=== PATIENT | male | born 1970 | race Caucasian/White ===

== ENCOUNTER 2019-12-08 15:11 | Observation (INO) | payer OTHER, MEDICAID, SELFPAY ==
[2019-12-08 15:15] VITALS: BP 162/87; PULSE 96; RESP 18; TEMP 36.5; O2SAT 97; BMI 20.2
--- NOTE | 2019-12-08 15:27 | PC.NURSE ---
right hand noted with blister intact, right hand swollen, distal cms intact
--- NOTE | 2019-12-08 15:37 | DI.RAD.S_ITS ---
PROCEDURE: XR HAND RT MIN 3V INDICATIONS: Pain/swelling/foreign body TECHNIQUE: 3 views of the hand(s) acquired. COMPARISON: None. FINDINGS: Bones: No displaced fractures or dislocations. Carpal bones are normally aligned. No suspicious bony lesions. There appears to be slight deformity involving the tuft of the distal phalanx of the thumb, which probably is related to previous injury. Areas of mild degenerative change are noted. Soft tissues: No suspicious soft tissue calcifications. Prominent soft tissue swelling of the hand is more prominent overlying the 5th ray. No unexpected radiopaque foreign bodies are identified. IMPRESSION: 1. Soft tissue swelling about the hand without radiopaque foreign bodies evident. 2. No fractures. Dictated by: Chandra Blanton M.D. on 12/08/2019 at 15:02 Approved by: Chandra Blanton M.D. on 12/08/2019 at 15:10
--- NOTE | 2019-12-08 15:42 | ED_ITS ---
HPI - Skin/Abscess/Foreign Bdy General Chief complaint: Skin/Abscess/Foreign Body Stated complaint: right hand states infected Time Seen by Provider: 12/08/19 15:20 Source: patient Mode of arrival: Ambulatory History of Present Illness HPI narrative: Patient here for complaints of right hand pain and swelling. Ongoing for 5 days. 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 Went to [facility] 2 days ago but left against medical advice when advised to be admitted for cellulitis of the right hand. Denies any IV drug use Related Data Allergies Allergy/AdvReac Type Severity Reaction Status Date / Time No Known Drug Allergies Allergy Verified 12/08/19 15:23 Review of Systems Review of Systems Narrative: GENERAL: Denies chills, fatigue, malaise, fever, sweats. HEENT: Denies sinus pain, ear pain, sore throat, difficulty swallowing, dizziness. RESPIRATORY: Denies dyspnea, cough, wheezing, hemoptysis, sputum. CARDIOVASCULAR: Denies chest pain, palpitations, orthopnea, edema, GASTROINTESTINAL: Denies nausea, vomiting, abdominal pain, diarrhea, constipation, melena. : Denies dysuria, frequency, incontinence, hematuria, urinary retention. MUSCULOSKELETAL: Denies any weakness, has pain and swelling right hand SKIN: Denies rash, skin lesions, or other NEUROLOGIC: Denies weakness, headache, numbness, change in speech, confusion, seizures, incoordination. PSYCHIATRIC: No concerning psychosocial issues. 12 point review of systems is negative except for those stated above ROS Unobtainable: All systems reviewed & are unremarkable except as noted in HPI and below Patient History Social History Smoking Status: Current every day smoker Smoking Status: Current every day smoker tobacco type: cigarettes Substance Use Type: does not use Exam Narrative Exam Narrative: GENERAL: [49] year old patient appears stated age. Well- nourished, well-developed patient, in no distress, not toxic HEAD: Atraumatic. Normocephalic. EYES: Pupils equal round and reactive. Extraocular motions intact. No scleral icterus. No injection or drainage. ENT: Nose without bleeding, purulent drainage. Throat without erythema, tonsillar hypertrophy or exudate. Airway patent. NECK: Trachea midline. Non tender CARDIOVASCULAR: Regular rate and rhythm without murmurs, gallops, or rubs. RESPIRATORY: Clear to auscultation. Breath sounds equal bilaterally. No wheezes, rales, or rhonchi. GASTROINTESTINAL: Abdomen soft, non-tender, nondistended. EXTREMITIES: Examination right hand. No red streaking. Strong radial pulse. 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 No necrotic tissue. Edematous dorsal surface of the right hand. No puncture wounds or track steve seen. Palmar surface overlying the 5th metacarpal joint area tender to touch but no fluctuance. Possible foreign body under the callused skin BACK: Nontender without deformity or crepitance. No flank tenderness. NEURO: AOx3. SKIN: No rash or erythema of visible areas Initial Vital Signs Initial Vital Signs: Vital Signs Temperature 97.7 F 12/08/19 15:15 Pulse Rate 96 H 12/08/19 15:15 Respiratory Rate 18 12/08/19 15:15 Blood Pressure 162/87 H 12/08/19 15:15 Pulse Oximetry 97 12/08/19 15:15 Course Orders Ordered: ED Orders 12/08/19 15:37 XR hand RT min 3V Stat 12/08/19 15:51 Basic Metabolic Panel Stat Complete Blood Count AUTO DIFF Stat Clindamycin Phosphate (Cleocin) 600 mg in 50 mls @ 50 mls/hr IV Q8H ILENE Naloxone HCl (Narcan) 0.2 mg IV Q2MIN PRN PRN Reason: Opiate Reversal Discontinued Medications Clindamycin Phosphate (Cleocin) 600 mg in 50 mls @ 50 mls/hr IV NOW ONE Stop: 12/08/19 16:39 Last Infusion: 12/08/19 17:07 Dose: 0 mls/hr Documented by: Admin: 12/08/19 16:08 Dose: 50 mls/hr Documented by: MICHELLE Ketorolac Tromethamine (Toradol) 30 mg IV NOW ONE Stop: 12/08/19 16:24 Last Admin: 12/08/19 16:48 Dose: 30 mg Documented by: MICHELLE Consultations Consultation #1: Time 5:41 p.m.. Spoke with hospitalist Dr. Salinas... Admit Med surge observation Vital Signs Vital signs: Vital Signs - 8 hr 12/08/19 15:15 12/08/19 17:30 Temperature 97.7 F Pulse Rate 96 H 97 H Respiratory Rate 18 16 Blood Pressure 162/87 H Blood Pressure [Right Arm] 120/64 Pulse Oximetry 97 97 MDM - Skin/Abscess/Foreign Bdy Differential Diagnosis Differential diagnosis: Likely cellulitis Lab Data Result diagrams: 12/08/19 15:51 12/08/19 15:51 Labs: Lab Results 12/08/19 12/08/19 Range/Units 15:51 15:51 WBC 13.9 H (4.5-11.0) X10^3/uL RBC 4.86 (4.5-5.9) X10^6/uL Hgb 13.4 L (13.5-17.5) g/dL Hct 40.9 L (41-53) % MCV 84.1 (80-100) fL MCH 27.6 (26-34) PG MCHC 32.9 (30-36) % RDW 15.2 H (11.6-14.8) % Plt Count 371 (150-400) X10^3/uL Neut % (Auto) 80.9 H (50-75) % Lymph % (Auto) 9.1 L (25-40) % [place] % (Auto) 8.6 (3-14) % Eos % (Auto) 0.8 L (2-4) % Baso % (Auto) 0.6 (0-2) % Neut # (Auto) 23017 H (2857-7436) /uL Lymph # (Auto) 1300 (1585-0287) /uL [place] # (Auto) 1200 H (0-900) /uL Eos # (Auto) 100 (0-450) /uL Baso # (Auto) 100 (0-100) /uL Sodium 136 L (137-145) mmol/L Potassium 4.2 (3.4-5.1) mmol/L Chloride 99 (98-107) mmol/L Carbon Dioxide 29 (22-32) mmol/L BUN 19 (9-20) mg/dL Creatinine 0.71 (0.66-1.25) mg/dL Estimated GFR > 60.0 (>60) mL/min BUN/Creatinine Ratio 26.8 H (6-22) Glucose 79 (70-100) mg/dL Calcium 9.5 (8.4-10.2) mg/dL Imaging Data Right hand x-ray: Radiologist's Impression: [address] [address] XRay Report Signed Patient: Cedrick Gonzáles JMR#: [id number] : 1970Acct:[id number] Age/Sex: 49 / MDate of Service: 12/08/19 Loc: ED Accession Number: [id number] Procedure: XR hand RT min 3V Ordering Provider: Mumtaz Boggs MD PROCEDURE: XR HAND RT MIN 3V INDICATIONS: Pain/swelling/foreign body TECHNIQUE: 3 views of the hand(s) acquired. COMPARISON: None. FINDINGS: Bones: No displaced fractures or dislocations. Carpal bones are normally aligned. No suspicious bony lesions. There appears to be slight deformity involving the tuft of the distal phalanx of the thumb, which probably is related to previous injury. Areas of mild degenerative change are noted. Soft tissues: No suspicious soft tissue calcifications. Prominent soft tissue swelling of the hand is more prominent overlying the 5th ray. No unexpected radiopaque foreign bodies are identified. IMPRESSION: 1. Soft tissue swelling about the hand without radiopaque foreign bodies evident. 2. No fractures. Dictated by: Chandra Blanton M.D. on 12/08/2019 at 15:02 Approved by: Chandra Blanton M.D. on 12/08/2019 at 15:10 Discharge Plan Departure Patient Disposition: Admitted as Observation Clinical Impression: Cellulitis of hand, right Discharge Date/Time: 12/08/19 17:44 Admit Date/Time: 12/08/19 17:43 Admit Provider: Madhu Fuentes
[2019-12-08 16:04] LABS: Add Manual Diff / Slide Review NO; Basophils Absolute Auto 100 /uL (0-100); Basophils Percent Auto 0.6 % (0-2); Eosinophils Absolute Auto 100 /uL (0-450); Eosinophils Percent Auto 0.8 % (2-4); Hematocrit 40.9 % (41-53); Hemoglobin 13.4 g/dL (13.5-17.5); Lymphocytes Absolute Auto 1300 /uL (1100-4500); Lymphocytes Percent Auto 9.1 % (25-40); Mean Corpuscular HGB Conc 32.9 % (30-36); Mean Corpuscular Hemoglobin 27.6 PG (26-34); Mean Corpuscular Volume 84.1 fL (80-100); Monocytes Absolute Auto 1200 /uL (0-900); Monocytes Percent Auto 8.6 % (3-14); Neutrophils Absolute Auto 11200 /uL (1500-7000); Neutrophils Percent Auto 80.9 % (50-75); Platelet Count 371 X10^3/uL (150-400); Red Blood Cell Count 4.86 X10^6/uL (4.5-5.9); Red Cell Distribution Width 15.2 % (11.6-14.8); White Blood Cell Count 13.9 X10^3/uL (4.5-11.0)
[2019-12-08] MEDS: CLINDAMYCIN 600 MG/50 ML PIGGYBACK 50 MG IV ×2 (16:08→19:02)
[2019-12-08 16:13] LABS: BUN Creatinine Ratio 26.8 (6-22); Blood Urea Nitrogen 19 mg/dL (9-20); Calcium 9.5 mg/dL (8.4-10.2); Carbon Dioxide 29 mmol/L (22-32); Chloride 99 mmol/L (98-107); Estimated Glomerular Filt Rate > 60.0 mL/min (>60); Glucose 79 mg/dL (70-100); HEMOLYSIS < 15 (0-50); Potassium 4.2 mmol/L (3.4-5.1); Sodium 136 mmol/L (137-145)
[2019-12-08] MEDS: KETOROLAC 60 MG/2 ML VIAL 30 MG IV (16:48)
[2019-12-08 17:30] VITALS: BP 120/64; PULSE 97; RESP 16; O2SAT 97
--- NOTE | 2019-12-08 17:56 | PM.HP.1 ---
History of Present Illness History of Present Illness Date Patient Seen: 12/08/19 Time Patient Seen: 17:56 Chief complaint: right hand states infected Narrative: This is a 49-year-old male admitting for right hand infection. 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 Two days ago the right hand became painful so he went for an evaluation to the [facility] Emergency Department where an admission treatment program was advised which he declined. He now presents to our emergency department stating that he is willing to be treated and admitted. The hand pain has been worsening, with a focus at the palmar base of the small finger (5th) along with swelling on the dorsum of the hand. The pain and swelling does not radiate past the wrist. He has normal function of the hand and is not aware of any injury to that area. He does, as stated above, work with metal and wood and frequently does have lacerations/punctures/slivers. An x-ray shows no obvious metallic foreign body. In addition he smokes 1 pack a day and drinks a 12 pack of beer every 5 days. He gives a history of an abdominal surgery 6 months ago at [facility] for a bleeding gastric ulcer. Nonsteroidal anti-inflammatories will need to be avoided. Patient History Medical History (Updated 12/08/19 @ 18:13 by Madhu Fuentes MD) Bleeding ulcer with perforation (Acute) Surgical History (Updated 12/08/19 @ 18:13 by Madhu Fuentes MD) H/O abdominal surgery (Acute) H/O wrist surgery (Acute) Family & Social History Family History (Updated 12/08/19 @ 18:16 by Madhu Fuentes MD) Mother Healthy female Social History: All 5 of his children are healthy His backup decision maker is his girlfriend - Gosia Matson. Safety & Behavioral: Feels Safe in Current Yes Environment Been Physically Hurt or No Threatened By a Person Tobacco & Substance use: Smoking Status Current every day smoker Substance Use Type does not use Comment: No drugs. Drinks a 12 pack of beer every 5 days Smokes 1 PPD Meds Home Medications and Allergies Allergies Allergy/AdvReac Type Severity Reaction Status Date / Time No Known Drug Allergies Allergy Verified 12/08/19 15:23 Review of Systems Review of Systems Narrative: Positive for hand pain. Negative for chest pain, shortness of breath, coughing, fevers, chills, sweats, abdominal pain, nausea, vomiting, diarrhea, bleeding, rash, seizures, difficulty talking, difficulty walking. ROS: Yes All systems reviewed with the patient and are negative except as otherwise documented Exam Vital Signs (past 8 hours): - 12/08/19 15:15 12/08/19 17:30 Temperature 97.7 F Pulse Rate 96 H 97 H Respiratory Rate 18 16 Blood Pressure 162/87 H Blood Pressure [Right Arm] 120/64 Pulse Oximetry 97 97 Oxygen Delivery Method Room Air Narrative Exam Narrative: Alert and oriented x3. No apparent distress His hands look like he is a financial examiner. He is a professional aircraft sheet metal mechanic and has grease and other dirt deeply imbedded in all areas of his upper extremity. Pupils are equally round reactive to light and accommodation. Extraocular muscles are intact. Sclerae are pink and nonicteric. There is no thyromegaly JVD is less than 6 cm and no carotid bruits are heard. No lymph nodes are felt head, neck, supraclavicular area. Throat looks normal. Heart is regular rate and rhythm without murmur. Lungs are clear to auscultation bilaterally. Abdomen is soft, bowel sounds positive, nontender, no organomegaly. Extremities have no ankle edema. The back of the right hand is puffy, swollen but not tender or warm. The pad at the base of the right 5th finger has an area of soft, tender, whitish swelling that feels about the size of a large marble. Skin is darkened and grease imbedded not only in his palms but basically everywhere. He is wearing tattered boots and clothing, looking disheveled There is no rash. There is no discoloration on the right hand where the infection is. This is obscured by his imbedded grease. Cranial nerves 2-12 test intact There is no tremor Motor function is 5/5 throughout. Objective Labs Result Diagrams: 12/08/19 15:51 12/08/19 15:51 Labs: Laboratory Results - last 24 hr 12/08/19 12/08/19 15:51 15:51 WBC 13.9 H RBC 4.86 Hgb 13.4 L Hct 40.9 L MCV 84.1 MCH 27.6 MCHC 32.9 RDW 15.2 H Plt Count 371 Neut % (Auto) 80.9 H Lymph % (Auto) 9.1 L [place] % (Auto) 8.6 Eos % (Auto) 0.8 L Baso % (Auto) 0.6 Neut # (Auto) 93144 H Lymph # (Auto) 1300 [place] # (Auto) 1200 H Eos # (Auto) 100 Baso # (Auto) 100 Sodium 136 L Potassium 4.2 Chloride 99 Carbon Dioxide 29 BUN 19 Creatinine 0.71 Estimated GFR > 60.0 BUN/Creatinine Ratio 26.8 H Glucose 79 Calcium 9.5 Assessment & Plan Assessment & Plan narrative: Right Hand Abscess/Cellulitis, present on admission, acute -begin clindamycin IV 600 mg q8 h. -recheck CBC 12/08. Admit white blood count of 13.9. -consult orthopedics for possible incision and drainage. Discussed with Dr. Logan who requests that he be NPO after midnight. He will see him in the morning. This is discussed with the patient. Regular alcohol use, present on admission, chronic -admits to using approximately 2 beers per day -watch for signs of alcohol withdrawal Nicotine addiction, present on admission, chronic -add nicotine patch if needed
[2019-12-08 18:49] VITALS: BP 130/78; PULSE 97; RESP 18; TEMP 37.2; O2SAT 99
[2019-12-08] MEDS: HYDROCODONE/ACET 5/325 TABLET 1 TAB PO (19:02)
[2019-12-08] MEDS: SODIUM CHLORIDE 0.9% 1,000 ML 84 ML IV (19:04)
[2019-12-08 19:12] VITALS: BMI 20.2
--- NOTE | 2019-12-08 22:45 | PC.NURSE ---
Admission note: patient arrived to floor on foot, walked up with personal from ED. Pt reports pain in RT hand 01/15, states he has been tolerating it because he has to but would lilke to have something for pain treatment if available. Pt has limited ROM in right hand due to swelling in joint and fingers. Patient appears to be unkempt and has declined to brush teeth or shower this xiomara. Aware that he is NPO at midnight in preperation for ortho consult tomorrow and poss need for I&D. Patient is resting peacefully in bed at this time. Call light w/ in reach, bed in low pos. no alarm active. pt uses call light w/ needs when nec.
[2019-12-08 23:35] VITALS: BP 106/66; PULSE 89; RESP 16; TEMP 36.4; O2SAT 97
[2019-12-09] VITALS (12 sets, daily range): BP systolic 102–133; BP diastolic 64–87; PULSE 71–93; RESP 9–17; TEMP 36–36.8; O2SAT 95–100; BMI 20.2
[2019-12-09] MEDS: HYDROCODONE/ACET 5/325 TABLET 1 TAB PO (00:31)
[2019-12-09] MEDS: CLINDAMYCIN 600 MG/50 ML PIGGYBACK 50 MG IV ×2 (01:56→08:49)
--- NOTE | 2019-12-09 02:10 | PC.NURSE ---
Addendum entered by Lily Arnold R.N. 12/09/19 04:06: Complains of 6/10 right hand pain making it difficult for him to sleep. TAMI Jeter, informed and order received for now dose of Dilaudid; administered as ordered. Original Note: Patient seen and assessed at 0038. Is alert and oriented. Breath sounds diminished but CTA with RA sat of 97%. HRR. Denies nausea. BT present and abdomen is soft. Has not voided since admission but evening RN reported patient voided in ER. Is able to turn himself in bed. When OOB have requested patient to have SBA for safety at night; verbalizes understanding. Has callous/blister area at base of right 5th finger; area is red and tender to touch. States pain is 5/10 and medicated with Vicodin. States he has chronic tingling in left hand which he believes is due to carpal tunnel. Wearing bilateral SCD's. Fall risk score is low but bed alarm activated for safety. NPO after midnight for possible surgery in a.m.
[2019-12-09] MEDS: HYDROMORPHONE 0.5 MG INJ IV ×3 (04:04→11:51)
[2019-12-09 06:01] LABS: Add Manual Diff / Slide Review NO; Basophils Absolute Auto 100 /uL (0-100); Basophils Percent Auto 0.7 % (0-2); Eosinophils Absolute Auto 200 /uL (0-450); Eosinophils Percent Auto 2.9 % (2-4); Hematocrit 37.2 % (41-53); Hemoglobin 12.3 g/dL (13.5-17.5); Lymphocytes Absolute Auto 1600 /uL (1100-4500); Lymphocytes Percent Auto 19.7 % (25-40); Mean Corpuscular Hemoglobin 27.8 PG (26-34); Mean Corpuscular Volume 84.3 fL (80-100); Monocytes Absolute Auto 1000 /uL (0-900); Monocytes Percent Auto 12.2 % (3-14); Neutrophils Absolute Auto 5200 /uL (1500-7000); Neutrophils Percent Auto 64.5 % (50-75); Platelet Count 332 X10^3/uL (150-400); Red Blood Cell Count 4.41 X10^6/uL (4.5-5.9); Red Cell Distribution Width 14.9 % (11.6-14.8); White Blood Cell Count 8.1 X10^3/uL (4.5-11.0)
--- NOTE | 2019-12-09 08:44 | P.PN_ITS ---
Subjective Subjective Date Patient Seen: 12/09/19 Interval history: Cedrick Gonzáles is a 49-year-old male with a past medical history significant for tobacco dependence and daily alcohol use who presented to the ED for right hand infection. The patient is resting comfortably in bed. He reports that his right hand pain is well controlled with pain medications and currently rates his pain a +2/10 and has been as high as +6/10. His right hand pain is throbbing in quality. He has an area on the palmar aspect of his right hand at the 5th metacarpal which is fluctuant and purulent and likely a small abscess and his erythema and edema on dorsum of 5th metacarpal has improved and continues to be contained within the outline margin. The red streaking up his right forearm has resolved. He is able to actively and passively move his hand without significant pain. He has no other complaints and denies headache, cough, shortness of breath, chest pain, abdominal pain, nausea, vomiting, fever, chills, dysuria, diarrhea or constipation. He endorses hunger and is eager to eat. He is voiding and eliminating without difficulty. He is up ambulating independently in room. Patient is NPO and plan is to take him to the OR for I&D later today. Exam Vital Signs (past 8 hours): - 12/09/19 03:45 12/09/19 08:00 Temperature 96.8 F L 97.5 F L Pulse Rate 85 74 Respiratory Rate 16 16 Blood Pressure 112/64 114/67 Pulse Oximetry 95 97 Oxygen Delivery Method Room Air Oxygen Flow Rate 0 Narrative Exam Narrative: General: Middle-aged gentleman sitting in bed and in no acute distress, poor hygiene with dirt under nails, well-developed, well-nourished, appropriately interactive. HEENT: Normocephalic, atraumatic. External ears without defect. Pupils equal, round, and reactive to light. Anicteric sclerae, moist conjunctivae, and no lid lag. Oropharynx free of erythema and cobble stoning with moist mucosa. Neck: Supple with full range of motion. No lymphadenopathy or thyromegaly. Cardiovascular: Regular rate and rhythm without murmurs, rubs, or gallops appreciated. Pulmonary: Clear to auscultation bilaterally without crackles, wheezes, or rhonchi. Normal respiratory effort with no use of accessory muscles. Abdomen: Soft, bowel sounds present, nontender, nondistended. No he patosplenomegaly or masses appreciated. Extremities: No clubbing, cyanosis, or edema of other extremities. Right hand with erythema and edema surrounding 5th metacarpal on dorsum of hand which is improved and contained within outlined margin. Red streaking up right forearm resolved. Fluctuant and purulence area on plantar aspect of hand at 5th metacarpal medical claims representative of small abscess. Skin: Normal temperature, turgor, and texture; no rash, ulcers, or subcutaneous nodules appreciated. Neurological: Cranial nerves grossly intact. Psychiatric: Mildly anxious mood and normal affect. Alert and oriented to person, place, and time. Objective Labs Result Diagrams: 12/09/19 05:47 12/08/19 15:51 Labs: Laboratory Results - last 24 hr 12/08/19 12/08/19 12/09/19 15:51 15:51 05:47 WBC 13.9 H 8.1 RBC 4.86 4.41 L Hgb 13.4 L 12.3 L Hct 40.9 L 37.2 L MCV 84.1 84.3 MCH 27.6 27.8 MCHC 32.9 33.0 RDW 15.2 H 14.9 H Plt Count 371 332 Neut % (Auto) 80.9 H 64.5 Lymph % (Auto) 9.1 L 19.7 L [place] % (Auto) 8.6 12.2 Eos % (Auto) 0.8 L 2.9 Baso % (Auto) 0.6 0.7 Neut # (Auto) 65596 H 5200 Lymph # (Auto) 1300 1600 [place] # (Auto) 1200 H 1000 H Eos # (Auto) 100 200 Baso # (Auto) 100 100 Sodium 136 L Potassium 4.2 Chloride 99 Carbon Dioxide 29 BUN 19 Creatinine 0.71 Estimated GFR > 60.0 BUN/Creatinine Ratio 26.8 H Glucose 79 Calcium 9.5 Assessment & Plan Assessment & Plan narrative: Cedrick Gonzáles is a 49-year-old male with a past medical history significant for tobacco dependence and daily alcohol use who presented to the ED for right hand infection. 1. Acute right hand cellulitis with abscess, present on admission. Active. -Patient presented with right hand erythema, edema and pain x2 days. Patient previously seen at [facility] and recommended admission which the patient declined. -Received clindamycin 600 mg IV x1 in ED. Continue clindamycin 600 mg IV every 8 hours. -Initial WBC 13.9 and normalize not 8.1. -Continue hydrocodone 5-325 mg every 4 hours as needed for pain while able to take in PO and Dilaudid 0.5 mg every 4 hours as needed for pain while NPO. -Consulted orthopedic surgery, Dr. Logan, who plans to take patient to OR today for I&D and washout. Patient has been NPO since midnight. 2. Alcohol dependence, present on admission. Stable. -Patient endorses drinking at least 2 beers daily. Denies history of alcohol withdrawal, DTs or alcohol withdrawal seizures. -Continue to monitor for signs of alcohol withdrawal. Low threshold to initiate CIWA protocol. 3. Tobacco dependence, present on admission. Stable. -Patient is a current smoker and smokes 0.75 packs per day. -Continue nicotine patch as needed for nicotine withdrawal. -Counseled the patient on smoking and highly encouraged smoking cessation Disposition: Patient likely to discharge home either today or tomorrow after orthopedic surgical intervention with I&D and washout.
[2019-12-09] MEDS: SODIUM CHLORIDE 0.9% 1,000 ML 84 ML IV (08:51)
--- NOTE | 2019-12-09 09:06 | PM.CN ---
History of Present Illness Consult details Date Patient Seen: 12/09/19 Time Patient Seen: 09:00 Chief complaint: right hand states infected Reason for consult: Right hand infection Requesting provider: Madhu Fuentes Narrative: 49-year-old gentleman with a history of right hand pain and swelling for the last few days. Patient works as a diesel truck mechanic. Unsure if he had any penetrating injury to that area of his hand. Was seen at the emergency room at [facility] a few days ago but left before any treatment could be administered. Presented to the emergency room here yesterday with increased redness and swelling. Patient was admitted for IV antibiotics and Orthopedics was consulted. Meds Home Medications and Allergies Allergies Allergy/AdvReac Type Severity Reaction Status Date / Time No Known Drug Allergies Allergy Verified 12/08/19 15:23 Review of Systems Review of Systems ROS: Yes All systems reviewed with the patient and are negative except as otherwise documented Exam Vital Signs (past 8 hours): - 12/09/19 03:45 12/09/19 08:00 Temperature 96.8 F L 97.5 F L Pulse Rate 85 74 Respiratory Rate 16 16 Blood Pressure 112/64 114/67 Pulse Oximetry 95 97 Oxygen Delivery Method Room Air Oxygen Flow Rate 0 Narrative Exam Narrative: Swelling to the dorsal as well as volar aspect of the hand. Small area over the volar aspect of the 5th MCP joint there is a possible fluid collection. Patient is still able to flex and extend the fingers. No pain with axial loading. Generalized swelling to the dorsal aspect of the hand but no sign of any fluid collection. Only the 5th finger seems to be involved. Rest of the fingers are free of any infectious process. Objective Labs Result Diagrams: 12/09/19 05:47 12/08/19 15:51 Labs: Laboratory Results - last 24 hr 12/08/19 12/08/19 12/09/19 15:51 15:51 05:47 WBC 13.9 H 8.1 RBC 4.86 4.41 L Hgb 13.4 L 12.3 L Hct 40.9 L 37.2 L MCV 84.1 84.3 MCH 27.6 27.8 MCHC 32.9 33.0 RDW 15.2 H 14.9 H Plt Count 371 332 Neut % (Auto) 80.9 H 64.5 Lymph % (Auto) 9.1 L 19.7 L [place] % (Auto) 8.6 12.2 Eos % (Auto) 0.8 L 2.9 Baso % (Auto) 0.6 0.7 Neut # (Auto) 59292 H 5200 Lymph # (Auto) 1300 1600 [place] # (Auto) 1200 H 1000 H Eos # (Auto) 100 200 Baso # (Auto) 100 100 Sodium 136 L Potassium 4.2 Chloride 99 Carbon Dioxide 29 BUN 19 Creatinine 0.71 Estimated GFR > 60.0 BUN/Creatinine Ratio 26.8 H Glucose 79 Calcium 9.5 Assessment & Plan Assessment & Plan narrative: Right hand infection mainly involving the 5th finger. Patient has noticed improvement since being on IV antibiotics but still would recommend a I and D of the area with a possible fluid collection. Surgery was discussed with the patient in the risks and limitations associated with. All of his questions concerns were answered to his satisfaction. Time Spent With Patient Time with patient: 15-24 minutes
--- NOTE | 2019-12-09 10:05 | PC.NURSE ---
Day Shift- Pt A&OX4, able to make needs known, NPO. Pain 5-6/10 throbbing to right outer hand and tender to touch. Spoke with Dr. Cueva, to have IV PRN med for pain management as pt is NPO. New order placed by Dr. Cueva and IV PRN Dilaudid given at 0845 with good effect. Pain decreased to 2/10. Pt to OR via wheelchair at 1003, PIV S/L'd.
[2019-12-09] MEDS: LACTATED RINGERS 1,000 ML 42 ML IV (10:21)
[2019-12-09] MEDS: BUPIVACAINE 0.25% W/ EPI 30 ML VIAL INJ (10:53)
[2019-12-09 10:58] LABS: Procalcitonin 0.13 ng/mL (<0.5)
[2019-12-09 10:58] LABS: Procalcitonin 0.06 ng/mL (<0.5)
--- NOTE | 2019-12-09 11:08 | PM.OP.1 ---
Operative Date/Time/Diagnoses Date of procedure: 12/09/19 Time of procedure: 10:30 Pre-op diagnosis: Right hand infection Post-op diagnosis: same Procedure & Clinicians Procedure: Irrigation and debridement of right hand Same procedure as scheduled: Yes Indications: Right hand infection Surgeon: Hank Logan Click Yes if Unassisted: Yes Anesthesia Type: General Operative Notes Findings: Small superficial abscess to the volar aspect of the hand. Closure Type: primary Specimen(s): other (Cultures sent) Estimated Blood Loss (mL): 0 Blood products transfused: none Tourniquet time (min): 14 Procedure in detail: On date of service, patient was met in the holding area where his operative site was signed and witnessed by the OR staff. Surgeries once again discussed with the patient in remaining questions or concerns he had were answered fully. Patient was taken back to the operating theater and placed on the operating table in a supine position. Great care was taken to ensure that all bony prominences were appropriately padded. Well-padded tourniquet was placed up along the upper extremity. A time-out was performed verifying patient's name, procedure, and operative site. An Esmarch was used to exsanguinate the limb the right arm was prepped and draped in the normal sterile fashion. Small Irma type incision was made over the MCP joint of the 5th finger. Fifteen blade was used to incise through skin once we incised through skin there was a small pus that discharged. This was collected for microbiology. This was sent for cultures and sensitivities. The abscess collection was relatively superficial and did not involve the joint nor the flexor tendon. Pickups and tenotomies were used to bluntly dissect down through the fascial tissue to see there was any deeper signs of infectious process. As mentioned previously, no sign of any involvement tendon to bone. The wound was copiously irrigated. No sign of any tracking distally or proximally from our incision. The wound was packed and then closed loosely. The hand was then cleaned, dried, and dressed. Patient was taken to the PACU in stable condition. Complications: none Post-operative Condition: stable Disposition: PACU Plan for aftercare: Patient can be discharged home today. Patient will follow up in clinic for wound check later this week.
--- NOTE | 2019-12-09 12:51 | CM.DANOTE ---
Discharge Planning/Care Management DCP: assessment: case received, EMR reviewed. Discussed in Team Rounds. Met now with pt just after he returned from PACU. Introduced self and role. Pt is a 49 year old male who admitted yesterday to care of hospitalist team. Salon Coordinator: Dr. Doyle who took pt to surgery today for an I&D of wound on his hand. (R). Payer: [employer] [place]/Medicaid. Admission status: OBS: confirmed by [facility] BRAVO Gaspar. DCP assessment Template completed with info given by pt: see below. There has been some confusion today re a d/c order. After coordination with Dr. Fuentes, Dr. Cueva and Dr. Logan it has been determined that pt will be able to d/c home later today and pt says he is very eager to leave. Gosia will be picking him up and will be available to assist him at home as he recovers. Pt confirms he has no PCP and no idea of his insurance. A copy of his face sheet with insurance information is now provided for him but thus far their are no notes in COL from [facility] verifying that this is current. Dr. Logan plans to see pt later this week in his clinic. CM Discharge Assessment Start: 12/09/19 12:49 Freq: Status: Active Protocol: Document 12/09/19 12:49 ITV (Rec: 12/09/19 12:50 ITV [id number]) Discharge Planning Assessment Advance Directives? No History Provided By Patient,Medical Record Prior Living Arrangements RV Comment [facility] address is his mailing address only Household Members significant other Comment girlfriend: Gosia Huyen: [phone] Review Status In Process
--- NOTE | 2019-12-09 13:31 | PC.NURSE ---
Addendum entered by Rossana Flores R.N. 12/09/19 13:37: IVF not started as pt was eating and drinking well post op and plan for discharge today. No urge to void at this time. Original Note: Day Shift- Pt back to unit at 1125 via bed, settled back into room 209 by FISH HATCHERY LABORER and Surgical team nurse. RN Coordinator Placido given brief update at bedside. This RN assessed pt at 1145, pt reported 8/10 pain, fidgeting, facial grimacing. IV PRN Dilaudid given at 1155 with good effect. Pt stated was very hungry, If I don't eat, I get sick. FISH HATCHERY LABORER had previously given pt crackers and water. This RN gave pt 1/2 sandwich, chicken breast and mashed potatoes with juice. Pt tolerated well, denied nausea. Spoke with Dr. Logan via phone to clarify discharge order for today. Pt okay to go home today. Pt's girlfriend Gosai will tack picker pt around 1600 at ED entrance. Pt okay with this timing and wants to discharge home today.
[2019-12-09] MEDS: OXYCODONE IR 10 MG TABLET PO (14:54)
[2019-12-09] MEDS: ACETAMINOPHEN 325 MG TABLET 975 MG PO (14:55)
--- NOTE | 2019-12-09 16:11 | PC.NURSE ---
Discharge instructions and scripts given. Pt verbalized understanding of all instructions. Advised pt to get PCP and have scrotal mass assessed by PCP. IV removed. Pt escorted out in w/c by [employer] AGENT to private vehicle driven by pt's girlfriend. Pt left in stable condition with all personal belongings.
== END 2019-12-09 16:05 | disposition home or self-care (01) ==
LOC: ED 17:41 → AC 17:43
PROVIDERS: Internal Medicine; Orthopaedic Surgery; Admitting Provider Family Medicine; Emergency Provider Emergency Medicine; Referring Provider Emergency Medicine; Visit Provider Family Medicine
PROC: (CPT 10060; principal; 2019-12-09 10:15)
DX: L02.511 Cutaneous abscess of right hand (principal); M79.641 Pain in right hand; F17.210 Nicotine dependence, cigarettes, uncomplicated; B95.61 Methicillin susceptible Staphylococcus aureus infection as the cause of diseases classified elsewhere
CPT/HCPCS: 10060; 36415; 73130; 80048; 84145; 85025; 87070; 87075; 87077; 87147; 87186; 87205; 96361; 96365; 96366; 96375; 96376; 99284; G0378; J1170; J1885; J2704; J3010